=== PATIENT | male | born 1965 | race Caucasian/White ===

== ENCOUNTER 2022-10-20 11:12 | Emergency (ER) | payer OTHER, SELFPAY ==
[2022-10-20 11:19] VITALS: BP 142/92; PULSE 76; RESP 18; TEMP 36.2; O2SAT 98
--- NOTE | 2022-10-20 12:10 | CRLHL7_ITS ---
For Patients: As a result of the Century Cures Act, medical imaging exams and procedure reports are released immediately into your electronic medical record. You may view this report before your referring provider. If you have questions, please contact your health care provider. INDICATION: Headache and visual changes COMPARISON: No prior CTs available for comparison TECHNIQUE: CT examination of the head was performed as axial sections without intravenous contrast. Images were obtained from the vertex of the skull through the skull base. Please note that all CT scans at this facility use dose modulation, iterative reconstruction, and/or weight-based dosing when appropriate to reduce radiation dose to as low as reasonably achievable. FINDINGS: The brain shows no sign of mass lesion, mass effect, hemorrhage, or edema. The ventricles and sulci are normal in appearance for the patient`s age. The visualized portions of the orbits are normal in appearance. The osseous structures are normal in their appearance with no sign of abnormality in the skull base or calvarium. Incidental sinus inflammatory changes. These appear primarily to be chronic changes involving the left maxillary sinus and to a less degree the ethmoid air cells. IMPRESSION: Normal unenhanced head CT. Chronic appearing sinus mucosal inflammatory changes as described above. No visible orbital pathology on this unenhanced head CT Please note that all CT scans at this facility use dose modulation, iterative reconstruction, and/or weight-based dosing when appropriate to reduce radiation dose to as low as reasonably achievable. Dictated by Babar Dye MD @ 10/20/2022 1:31:17 PM (Electronically Signed)
--- NOTE | 2022-10-20 12:10 | CRLHL7_ITS ---
For Patients: As a result of the Century Cures Act, medical imaging exams and procedure reports are released immediately into your electronic medical record. You may view this report before your referring provider. If you have questions, please contact your health care provider. Indication: Headache Technique: CT examination of the paranasal sinuses was performed. Study was performed without contrast. Imaging was acquired in the axial plane as thin-section imaging. Sagittal and coronal reformatted imaging was performed. Please note that all CT scans at this facility use dose modulation, iterative reconstruction, and/or weight-based dosing when appropriate to reduce radiation dose to as low as reasonably achievable. Comparison: No prior sinus study Findings: There is no osseous destructive, erosive or expansile lesion. There is no air-fluid level. There is leftward nasal septal deviation and a leftward nasal septal spur. There is normal aeration of the frontal sinuses. There is trace mucosal thickening identified on coronal imaging. Normal aeration and development of ethmoid air cells. Minor mucosal thickening noted. The sphenoid sinus appears normal. The right maxillary sinus is unremarkable. The right ostiomeatal unit is patent. There is mucosal thickening in the left maxillary sinus with a soft tissue abnormality probable polyp or mucosal retention cyst measuring about 2 centimeters in greatest dimension. The ostiomeatal unit is patent. No significant soft tissue abnormality identified involving the nasal cavity or nasopharynx. Impression: Relatively mild chronic inflammatory changes involving the frontal sinuses and ethmoid air cells. Mild to moderate chronic mucosal inflammatory disease of the left maxillary sinus. Probable 2 centimeter mucosal retention cyst in the maxillary sinus. Leftward nasal septal deviation with a leftward nasal septal spur. No bone destruction or expansion and no acute appearing inflammatory process. Please note that all CT scans at this facility use dose modulation, iterative reconstruction, and/or weight-based dosing when appropriate to reduce radiation dose to as low as reasonably achievable. Dictated by Babar Dye MD @ 10/20/2022 1:35:58 PM (Electronically Signed)
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
== END 2022-10-20 15:15 | disposition home or self-care (01) ==
PROVIDERS: Emergency Provider Family Medicine; PCP Family Medicine
DX: J32.9 Chronic sinusitis, unspecified (principal); R09.81 Nasal congestion
CPT/HCPCS: 70450; 70486; 99284

== ENCOUNTER 2022-12-05 19:29 | Outpatient (CLI) | payer OTHER, SELFPAY | END 2022-12-05 19:30 | disposition home or self-care (01) | LOC: SLEEP 19:30 | PROVIDERS: PCP Family Medicine; Visit Provider Otolaryngology | DX: G47.33 Obstructive sleep apnea (adult) (pediatric) (principal) | CPT/HCPCS: 95806 ==

== ENCOUNTER 2022-12-26 19:25 | Outpatient (CLI) | payer OTHER, SELFPAY ==
--- NOTE | 2023-01-05 11:43 | W.PM.SLEEP ---
Sleep Study Details Details Interpreting Provider: Sj Date of Sleep Study: 12/26/22 Sleep Study Details: STUDY TYPE:? Jasen intended ? BMI:? 25.8 ORDERING PROVIDER:Jimenez Gustafson INDICATION:? Concerns about sleep apnea ? SLEEP SUMMARY:? 464.3 minutes monitored RESPIRATORY SUMMARY:? AHI 19.5, supine 20.9, right lateral 7.5 Low oxygen 83 3.9% of study oxygen less than 90% Snoring none PERIODIC LIMB MOVEMENTS OF SLEEP:? Not recorded during home study CARDIAC:? 58-98, mean 72 IMPRESSION:? Moderate obstructive sleep apnea with supine position dependency RECOMMENDATION: Treatment options include CPAP versus dental appliance. Airway expansion surgery is also a possible treatment.
== END 2022-12-26 19:26 | disposition home or self-care (01) ==
LOC: SLEEP 19:26
PROVIDERS: PCP Family Medicine; Visit Provider Otolaryngology
DX: G47.33 Obstructive sleep apnea (adult) (pediatric) (principal)
CPT/HCPCS: 95806